=== PATIENT | female | born 1975 | race Two or more races ===

== ENCOUNTER 2019-06-15 05:45 | Inpatient (IN) | payer OTHER ==
[2019-06-14 14:45] LABS: APPEARANCE,URINE SLIGHTLY CLOUDY; BILIRUBIN, URINE NEGATIVE (NEGATIVE); COLOR,URINE PALE YELLOW; GLUCOSE, URINE (UA) NEGATIVE (NEGATIVE); KETONES,URINE 1+ (NEGATIVE); LEUKOCYTE ESTERASE ,URINE 1+ (NEGATIVE); NITRITE,URINE NEGATIVE (NEGATIVE); PH,URINE 7 (4.5-8.0); PROTEIN,URINE NEGATIVE (NEGATIVE); UROBILINOGEN,URINE NORMAL MG/DL (0.0-1.0)
[2019-06-15] VITALS (17 sets, daily range): BP systolic 89–141; BP diastolic 47–86
[~2019-06-15] VITALS: Ht 165.1 cm; Wt 64.9 kg
[2019-06-15] MEDS ORDERED: Thrombin 5000 units TOPIC ONE ×2 (06:40→06:41)
[2019-06-15] MEDS ORDERED: Bacitracin 50000 Units Vial ONE (06:41)
[2019-06-15] MEDS ORDERED: Gelfoam Absorbable 1gm powder pkt TOPIC ONE (06:41)
[2019-06-15] MEDS ORDERED: Gelfoam Size TOPIC ONE (06:41)
[2019-06-15] MEDS ORDERED: Lidocaine 1% MPF 10mg/ml 5ml ONE (06:43)
[2019-06-15] MEDS ORDERED: Rocuronium Bromide 50mg/5ml Inj IV ONE (06:43)
[2019-06-15] MEDS ORDERED: Midazolam 2mg/2ml Inj ONE (06:43)
[2019-06-15] MEDS ORDERED: Succinylcholine 20mg/ml 10ml vial ONE (06:43)
[2019-06-15] MEDS ORDERED: Heparin 5000 units/ml inj ONE (06:43)
[2019-06-15] MEDS ORDERED: fentaNYL 100 mcg/2 mL IV ONE (06:43)
[2019-06-15] MEDS ORDERED: Propofol 1,000mg/ 100ml btl IV ONE (07:00)
--- NOTE | 2019-06-15 07:12 | Pre-Procedure Note/Attestation ---
Pre-Procedure Note/Attestation Complete Prior to Procedure Planned Procedure: not applicable Procedure Narrative: Anterior Lumbar interbody fusion L5/S1 with bone morphogenic protein and anterior instrumentation Indications for Procedure Pre-Operative Diagnosis: Traumatic aggravation of pseudarthrosis L5/S1 Attestation I attest that I discussed the nature of the procedure; its benefits; risks and complications; and alternatives (and the risks and benefits of such alternatives ), prior to the procedure, with the patient (or the patient's legal authorization representative). I attest that, if there was a reasonable possibility of needing a blood transfusion, the patient (or the patient's legal authorization representative) was given the [place] [facility] [employer] [facility] standardized written summary, pursuant to the David [place] Blood Safety Act ([place] Health and Safety Code # 1645, as amended). I attest that I re-evaluated the patient just prior to the surgery and that there has been no change in the patient's H&P, except as documented below: Flip Mckeon MD Jun 15, 2019 07:12
[2019-06-15] MEDS ORDERED: NS Irrig 1000ml IRRIG ONE ×2 (07:32→09:29)
[2019-06-15] MEDS ORDERED: Sodium Chloride 10ml vial INJ ONE (07:57)
[2019-06-15] MEDS ORDERED: Glycopyrrolate 0.2mg/ml 1ml Vial ONE (07:57)
[2019-06-15] MEDS ORDERED: Ketorolac 30mg Inj ONE (07:57)
[2019-06-15] MEDS ORDERED: Morphine Sulfate 10mg/ml Inj ONE (07:57)
[2019-06-15] MEDS ORDERED: LR 1000ml 1,000 ML IVLG SCH (08:11)
--- NOTE | 2019-06-15 08:11 | Anethesia Preoperative Eval ---
Anesthesia Pre-op PMH/ROS General Date of Evaluation: Jun 15, 2019 Time of Evaluation: 06:50 Anesthesiologist: Raheem ASA Score: ASA 2 Mallampati Score Class I : Soft palate, uvula, fauces, pillars visible Class II: Soft palate, uvula, fauces visible Class III: Soft palate, base of uvula visible Class IV: Only hard plate visible Mallampati Classification: Class II Surgeon: Linda Diagnosis: Lumbar radiculopathy Surgical Procedure: Anterior fusion L5-S1 Anesthesia History: none Social History: current smoker Family History: no anesthesia problems Allergies: Coded Allergies: No Known Allergies (Unverified , 06/15/19) Medications: see eMAR Patient NPO?: Yes NPO Date: Jun 14, 2019 NPO Time: 2099 Past Medical History Cardiovascular: Denies: HTN, CAD, [place], valve dz, arrhythmia, other Pulmonary: Denies: asthma, COPD, CARINE, other Gastrointestinal/Genitourinary: Reports: GERD Neurologic/Psychiatric: Reports: depression/anxiety, other - chnic pain; Denies: dementia, CVA, TIA Endocrine: Denies: DM, hypothyroidism, steroids, other HEENT: Denies: cataract (L), cataract (R), glaucoma, [place] (L), [place] (R), other Hematology/Immune: Denies: anemia, DVT, bleeding disorder, other Musculoskeletal/Integumentary: Denies: OA, RA, DJD, DDD, edema, other PMH Narrative: as above PSxH Narrative: breasts implants, Hysterectomy, bunion, posterior lumbar fusion Anesthesia Pre-op Phys. Exam Physician Exam Last Vital Signs Date Time Temp Pulse Resp B/P (MAP) Pulse Ox O2 Delivery O2 Flow Rate FiO2 06/15/19 06:25 Room Air 06/15/19 06:13 97.6 68 20 141/80 (100) 99 Constitutional: NAD Neurologic: CN 2-12 intact Cardiovascular: RRR, no M/R/G Respiratory: CTA Gastrointestinal: S/NT/ND Airway Exam Mallampati Score: Class II MO: full Neck: flexible ROM: full Teeth: intact Dentures: no upper, no lower Anesthesia Pre-op A/P Labs see chart Studies Pre-op Studies: EKG - NSR Risk Assessment & Plan Assessment: ASA 2 Plan: GA with ETT neuromonitoring Status Change Before Surgery: No Pre-Antibiotics Drug: Ancef 1gr. Given Within 1 Hr of Incision: Yes Time Given: 07:45 Ezekiel Maciel MD Jun 15, 2019 08:11
[2019-06-15] MEDS ORDERED: DiphenhydrAMINE 50mg/ml Inj IVP PRN (08:15)
[2019-06-15] MEDS ORDERED: Hydromorphone 0.5mg/0.5ml inj IVP PRN (08:15)
[2019-06-15] MEDS ORDERED: Ketorolac 30mg Inj IV PRN (08:15)
[2019-06-15] MEDS ORDERED: Acetaminophen (Non formulary) 100 ML IV ONE (08:15)
[2019-06-15] MEDS ORDERED: Metoclopramide 10mg/2ml Inj IVP PRN ×2 (08:15→09:30)
[2019-06-15] MEDS ORDERED: Meperidine 25mg/0.5ml Inj (FOR RIGORS ONLY) IV PRN (08:15)
[2019-06-15] MEDS ORDERED: Naloxone 0.4mg/ml Inj IVP PRN (09:30)
[2019-06-15] MEDS ORDERED: Acetaminophen 650 MG SUPP RECTAL PRN (09:30)
[2019-06-15] MEDS ORDERED: HYDROcodone/Acetamin 7.5/325 tab ORAL PRN (09:30)
[2019-06-15] MEDS ORDERED: HYDROcodone/Acetamin 5/325 tab ORAL PRN (09:30)
--- NOTE | 2019-06-15 09:37 | Immediate Post-Op Evaluation ---
Immediate Post-Op Evalulation Immediate Post-Op Evalulation Procedure: Anterior L5-S1 discectomy fusion Date of Evaluation: Jun 15, 2019 Time of Evaluation: 09:36 IV Fluids: 1200 Blood Products: none Estimated Blood Loss: 50 Urinary Output: 200 Blood Pressure Systolic: 114 Blood Pressure Diastolic: 65 Pulse Rate: 62 Respiratory Rate: 20 O2 Sat by Pulse Oximetry: 99 Temperature (Fahrenheit): 97.5 Pain Score (1-10): 1 Nausea: No Vomiting: No Complications none Patient Status: reacts, patent, extubated, none Hydration Status: adequate Ezekiel Maciel MD Jun 15, 2019 09:37
--- NOTE | 2019-06-15 09:38 | Brief Operative Note ---
Immediate Post Operative Note Operative Note Pre-op Diagnosis: Traumatic aggravation of pseudarthrosis L5/S1 Procedure: ALIF l5/s1 with plate and screws Post-op Diagnosis: same Post-op Diagnosis: same as pre-op Findings: consistent w/pre-op dx studies Surgeon: faith Classified Copy Control Clerk: Nakita NAIR Additional Surgeons: swapnil Anesthesiologist: Indy Anesthesia: general Specimen: yes Complications: none Condition: stable Fluids: D5 1/2 NS 20mEQ KCl. 100cc/hr Estimated Blood Loss: minimal Implant(s) used?: Yes Flip Mckeon MD Jun 15, 2019 09:38
--- NOTE | 2019-06-15 11:00 | NUR ---
NURSE NOTES: Pt came up to unit via hospital w/family at bedside and w/no personal belongings. Pt drowsy; VSS; on 2L NC; and in no apparent distress. IV site intact/asymptomatic; F/C patent/draining; surgical dressing C/D/I; and bowel sounds hypoactive on assessment. Will offer ice chips when pt more alert. Will continue to monitor.
[2019-06-15] MEDS: HYDROcodone/Acetamin 7.5/325 tab ORAL PRN ×2 (12:53→19:13)
[2019-06-15] MEDS: D5 1/2NS w/KCl 20mEq 1,000 ML IV SCH (12:56)
[2019-06-15 13:02] LABS: BASOPHILS % (AUTO) 0.4 % (0.0-2.0); EOSINOPHILS % (AUTO) 0.1 % (0.0-3.0); HEMATOCRIT 35.3 % (37.0-47.0); HEMOGLOBIN 12.5 G/DL (12.0-16.0); LYMPHOCYTES % (AUTO) 15.9 % (20.0-45.0); MEAN CORPUSCULAR VOLUME 92 FL (80-99); MONOCYTES % (AUTO) 6.3 % (1.0-10.0); NEUTROPHILS % (AUTO) 77.3 % (45.0-75.0); PLATELET COUNT 182 K/UL (150-450); RED BLOOD COUNT 3.84 M/UL (4.20-5.40); RED CELL DISTRIBUTION WIDTH 10.4 % (11.6-14.8); WHITE BLOOD COUNT 8.9 K/UL (4.8-10.8)
--- NOTE | 2019-06-15 13:15 | NUR ---
NURSE NOTES: Removed F/C w/o incident and emptied 625 ml of clear, yellow urine from drainage bag. Instructed pt to call when she needs to void. Will continue to monitor.
--- NOTE | 2019-06-15 13:16 | Diagnostic Imaging Report ---
INDICATION: Pain, intraoperative TECHNIQUE: Intraoperative imaging Fluoroscopy time: 15.8 seconds Total dose: 0.24785 mGym2 Total number of images: 3 COMPARISON: None FINDINGS: Intraoperative images demonstrate a surgical tool at the anterior aspect of what is presumably the L5-S1 disc. Subsequent images demonstrate placement of a disc spacer at this level. IMPRESSION: Intraoperative imaging, as described
[2019-06-15] MEDS: ceFAZolin sod 1 GM in D5W 55 ML IV SCH (15:38)
--- NOTE | 2019-06-15 16:00 | NUR ---
NURSE NOTES: Bolused pt w/1L NS d/t hypotension (BP: 91/60 P: 59); pt tolerated well. Will continue to monitor.
[2019-06-15] MEDS: Docusate 100mg cap ORAL SCH (18:08)
--- NOTE | 2019-06-15 19:00 | NUR ---
NURSE NOTES: Pt ambulated to bathroom w/FWW and w/help from APPLICATION PROCESSOR and successfully voided on her own; pt helped back to bed by APPLICATION PROCESSOR w/o incident. Will continue to monitor.
--- NOTE | 2019-06-15 19:38 | NUR ---
HAND-OFF: Report given to CHRISTINA Vega.
--- NOTE | 2019-06-15 21:06 | General Progress Note ---
Assessment/Plan Assessment/Plan: Traumatic aggravation of pseudarthrosis L5/S1 ALIF l5/s1 with plate and screws PLAN 1. incentive spirometry 2. SCD 3. PT evaluation and therapy 4. Hydration 5. Pain management 6. discharge once stable with outpatient follow up Subjective Allergies: Coded Allergies: No Known Allergies (Unverified , 06/15/19) Subjective asked to follow up postop Objective Last 24 Hour Vital Signs Date Time Temp Pulse Resp B/P (MAP) Pulse Ox O2 Delivery O2 Flow Rate FiO2 06/15/19 16:00 98.2 59 16 89/47 (61) 100 06/15/19 14:00 97.7 53 16 91/60 (70) 100 06/15/19 13:00 98.2 54 16 100/60 (73) 100 06/15/19 12:00 97.2 56 16 109/66 (80) 100 06/15/19 11:30 98.0 54 16 103/63 (76) 100 06/15/19 11:00 98.0 56 16 108/65 (79) 100 06/15/19 10:45 97.6 06/15/19 10:45 97.6 06/15/19 10:30 97.6 60 17 110/86 100 Nasal Cannula 3 06/15/19 10:20 51 14 101/50 100 Nasal Cannula 3 06/15/19 10:15 53 15 101/55 100 Nasal Cannula 3 06/15/19 10:05 62 22 102/53 100 Nasal Cannula 3 06/15/19 10:00 64 23 108/56 100 Simple Mask 6 06/15/19 09:50 60 20 126/81 100 Simple Mask 6 06/15/19 09:40 52 22 119/67 100 Simple Mask 6 06/15/19 09:37 62 20 99 06/15/19 09:35 60 18 114/65 100 Simple Mask 6 06/15/19 09:29 97.4 65 14 120/71 100 Simple Mask 6 06/15/19 06:25 Room Air 06/15/19 06:13 97.6 68 20 141/80 (100) 99 Intake and Output 06/14/19 06/15/19 19:00 07:00 # Voids 1 Laboratory Tests 06/15/19 12:15: White Blood Count 8.9, Red Blood Count 3.84L, Hemoglobin 12.5, Hematocrit 35.3L , Mean Corpuscular Volume 92, Mean Corpuscular Hemoglobin 32.6H, Mean Corpuscular Hemoglobin Concent 35.4, Red Cell Distribution Width 10.4L, Platelet Count 182, Mean Platelet Volume 6.4L, Neutrophils (%) (Auto) 77.3H, Lymphocytes (%) (Auto) 15.9L, Monocytes (%) (Auto) 6.3, Eosinophils (%) (Auto) 0.1, Basophils (%) (Auto) 0.4 Height (Feet): 5 Height (Inches): 5.00 Weight (Pounds): 130 Objective WDWN NAD clear breath sounds bilaterally without rhonchi or wheeze [id number] without MRG NABS nontender no HSM no CCE nonfocal Cristian Wright MD Jun 15, 2019 21:06
[2019-06-15] MEDS: HYDROmorphone 1mg/ml Carpuject IVP PRN (21:54)
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
[2019-06-16] VITALS: BP 124/66
[2019-06-16] MEDS: D5 1/2NS w/KCl 20mEq 1,000 ML IV SCH ×3 (00:06→19:00)
[2019-06-16] MEDS: ceFAZolin sod 1 GM in D5W 55 ML IV SCH ×2 (00:06→06:29)
--- NOTE | 2019-06-16 02:47 | NUR ---
NURSES NOTE: Pt in bed, A/OX4, able to let needs be known. Pt showing no s/s of distress. Breathing pattern is even and unlabored on RA. IVF running according to eMAR. All due meds will be given. Pt encouraged to ambulate. Bed at lowest level. Call light within reach. Pt will continue to be monitored.
[2019-06-16] MEDS: HYDROmorphone 1mg/ml Carpuject IVP PRN ×4 (03:32→20:39)
[2019-06-16 04:00] VITALS: BP 118/62
[2019-06-16 06:00] LABS: ANION GAP 8 mmol/L (5-15); BLOOD UREA NITROGEN 6 mg/dL (7-18); CALCIUM 8.5 MG/DL (8.5-10.1); CARBON DIOXIDE 25 MMOL/L (21-32); CHLORIDE 105 MMOL/L (98-107); CREATININE 0.6 MG/DL (0.55-1.30); POTASSIUM 4.3 MMOL/L (3.5-5.1); SODIUM 138 MMOL/L (136-145)
[2019-06-16] MEDS ORDERED: LR 1000ml ONE (07:00)
--- NOTE | 2019-06-16 07:32 | 48 Hour Post Anesthesia Eval ---
Post Anesthesia Evaluation Procedure: Anterior L5-S1 discectomy fusion Date of Evaluation: Jun 16, 2019 Time of Evaluation: 07:31 Blood Pressure Systolic: 118 0: 62 Pulse Rate: 60 Respiratory Rate: 16 Temperature (Fahrenheit): 98.4 O2 Sat by Pulse Oximetry: 97 Airway: patent Nausea: No Vomiting: No Pain Intensity: 3 Hydration Status: adequate Cardiopulmonary Status: Stable Mental Status/LOC: patient returned to baseline Follow-up Care/Observations: 0 Post-Anesthesia Complications: 0 Follow-up care needed: N/A Mau Benítez MD Jun 16, 2019 07:32
[2019-06-16 08:00] VITALS: BP 116/73
--- NOTE | 2019-06-16 08:03 | NUR ---
HAND OFF: Report given to CHRISTINA Witt. Patient in stable condition.
[2019-06-16] MEDS: Docusate 100mg cap ORAL SCH ×2 (08:10→17:22)
--- NOTE | 2019-06-16 08:24 | 48 Hour Post Anesthesia Eval ---
Post Anesthesia Evaluation Procedure: Anterior L5-S1 discectomy fusion Date of Evaluation: Jun 16, 2019 Time of Evaluation: 08:23 Blood Pressure Systolic: 116 0: 72 Pulse Rate: 68 Respiratory Rate: 20 Temperature (Fahrenheit): 97.6 O2 Sat by Pulse Oximetry: 98 Airway: patent Nausea: No Vomiting: No Pain Intensity: 3 Hydration Status: adequate Cardiopulmonary Status: stable Mental Status/LOC: patient returned to baseline Follow-up Care/Observations: n/a Post-Anesthesia Complications: none Follow-up care needed: N/A Ezekiel Maciel MD Jun 16, 2019 08:24
--- NOTE | 2019-06-16 08:30 | NUR ---
NURSE NOTES: Received report from Tami VASQUEZ. Patient is awake and oriented x4, no acute distress noted but patient is reporting 10/10 pain in surgical site, patient is crying and irritable from pain during rounds, requesting for IV pain medication. Patient medicated per order, IVF running per order through left hand IV. Surgical site dressing clean, dry, intact. Fall precautions maintained. Side rails upx2, bed low and locked, call light within reach, will reassess per order.
--- NOTE | 2019-06-16 09:15 | NUR ---
PT EVALUATION NOTE Patient seen for initial evaluation. Patient educated in back precautions and log roll technique for in/OOB. Patient required min assist for bed mobility and SBA for transfers with FWW. Patient able to ambulate 25 ft with CGA and FWW. Activity tolerance limited by c/o increased pain with ambulation. Patient will benefit from skilled inpatient PT intervention to address mobility and compliance with back precautions for increased level of independence with functional mobility. Recommend discharge home once medically cleared by MD. Recommend FWW for ambulation and raised toilet seat for toilet transfers. Addendum: 06/16/19 at 1243 by DAWIT MORGAN PT Amended: Links added.
--- NOTE | 2019-06-16 10:21 | General Progress Note ---
Assessment/Plan Assessment/Plan: Traumatic aggravation of pseudarthrosis L5/S1 ALIF l5/s1 with plate and screws PLAN 1. incentive spirometry 2. SCD 3. PT evaluation and therapy 4. Hydration 5. Pain management 6. discharge planning pending clearance and PT Subjective Allergies: Coded Allergies: No Known Allergies (Unverified , 06/15/19) Subjective overall care reviewed Objective Last 24 Hour Vital Signs Date Time Temp Pulse Resp B/P (MAP) Pulse Ox O2 Delivery O2 Flow Rate FiO2 06/16/19 08:24 68 20 98 06/16/19 07:32 60 16 97 06/16/19 04:00 98.4 60 16 118/62 (80) 97 06/16/19 00:00 98.6 68 14 124/66 (85) 96 06/15/19 21:00 Room Air 06/15/19 20:00 98.4 57 16 108/66 (80) 96 06/15/19 16:00 98.2 59 16 89/47 (61) 100 06/15/19 14:00 97.7 53 16 91/60 (70) 100 06/15/19 13:00 98.2 54 16 100/60 (73) 100 06/15/19 12:00 97.2 56 16 109/66 (80) 100 06/15/19 11:30 98.0 54 16 103/63 (76) 100 06/15/19 11:00 98.0 56 16 108/65 (79) 100 06/15/19 10:45 97.6 06/15/19 10:45 97.6 06/15/19 10:30 97.6 60 17 110/86 100 Nasal Cannula 3 Intake and Output 06/15/19 06/16/19 19:00 07:00 Intake Total 1700 ml 360 ml Output Total 875 ml Balance 825 ml 360 ml Intake Oral 360 ml IV Total 1700 ml Output Urine Total 825 ml Estimated Blood Loss 50 ml # Voids 1 Laboratory Tests 06/15/19 12:15: White Blood Count 8.9, Red Blood Count 3.84L, Hemoglobin 12.5, Hematocrit 35.3L , Mean Corpuscular Volume 92, Mean Corpuscular Hemoglobin 32.6H, Mean Corpuscular Hemoglobin Concent 35.4, Red Cell Distribution Width 10.4L, Platelet Count 182, Mean Platelet Volume 6.4L, Neutrophils (%) (Auto) 77.3H, Lymphocytes (%) (Auto) 15.9L, Monocytes (%) (Auto) 6.3, Eosinophils (%) (Auto) 0.1, Basophils (%) (Auto) 0.4 06/16/19 04:45: Sodium Level 138, Potassium Level 4.3, Chloride Level 105, Carbon Dioxide Level 25, Anion Gap 8, Blood Urea Nitrogen 6L, Creatinine 0.6, Estimat Glomerular Filtration Rate > 60, Glucose Level 100, Calcium Level 8.5 Height (Feet): 5 Height (Inches): 5.00 Weight (Pounds): 143 Objective WDWN NAD clear breath sounds bilaterally without rhonchi or wheeze [id number] without MRG NABS nontender no HSM no CCE nonfocal Cristian Wright MD Jun 16, 2019 10:21
[2019-06-16] MEDS: HYDROcodone/Acetamin 7.5/325 tab ORAL PRN ×4 (10:51→22:29)
[2019-06-16 12:00] VITALS: BP 127/75
[2019-06-16] MEDS ORDERED: Tubing IV Secondary IV ONE (15:06)
[2019-06-16 16:00] VITALS: BP 106/69
--- NOTE | 2019-06-16 18:20 | NUR ---
NURSE NOTES: Patient's left hand IV infiltrated. Patient's left hand is swollen and cool to touch. Removed IV intact, applied ice to left hand and elevated left hand/arm on pillow. Patient is refusing new IV insertion at this time.
--- NOTE | 2019-06-16 19:21 | NUR ---
NURSE NOTES: Received report from CHRISTINA Witt. Pt is awake, lying semi-zhu's; comfortably resting. No signs of acute distress noted. Pt denies any pain at this time. AOx4; able to make needs known. No IV site noted. Will attempt to establish IV at a later time. Dressing intact. No erythema or bleeding noted. Infiltration noted on the left hand; ice pack in place and elevated using a pillow. Bed at lowest position. Brakes on. Siderails up x2. Call light within reach. Will continue to monitor.
--- NOTE | 2019-06-16 19:24 | NUR ---
HAND-OFF: Report given to Heidy VASQUEZ.
[2019-06-16 20:00] VITALS: BP 103/61
[2019-06-17] VITALS: BP 113/68
[2019-06-17] MEDS: HYDROmorphone 1mg/ml Carpuject IVP PRN ×5 (00:17→21:26)
[2019-06-17] MEDS: D5 1/2NS w/KCl 20mEq 1,000 ML IV SCH (01:17)
[2019-06-17] MEDS: HYDROcodone/Acetamin 7.5/325 tab ORAL PRN ×3 (02:50→20:06)
[2019-06-17 04:00] VITALS: BP 96/67
--- NOTE | 2019-06-17 04:15 | NUR ---
HAND-OFF: Report given to CHRISTINA Weber. Pt is sleeping and in stable condition. Plan of care endorsed.
--- NOTE | 2019-06-17 07:12 | NUR ---
NURSES NOTE: Received pt in stable condition. No outward s/s of distress noted. IVF infusing according to eMAR. All due pain medications will be given. Bed at lowest level. Last BP lower than recent baseline, asymptomatic. Endorsed to AM nurse. Call light within reach. Partner at bedside.
--- NOTE | 2019-06-17 07:15 | NUR ---
HAND OFF: Report given to CHRISTINA Viramontes. Pt in stable condition.
--- NOTE | 2019-06-17 07:33 | NUR ---
NURSE NOTES: Report received from Tami VASQUEZ, rounds made. Patient resting in supine position in bed. AOx4 calm, no distress on RA. Denies NV, requesting food, will advance diet. IV D5 1/2 NS +20 KCL at 100 ml/hr infusing to MERCED, site asymptomatic, LH swollen due to past IV, no redness, skin remains intact. Abdominal dressing intact, small area shadow drainage (circled) will monitor. Bilateral TEDs/SCDs on. Neuros intact, moves all extremities, skin warm, pulses palpable, wiggles. Pain 8/10, will medicate as ordered. Call light in reach, bed in lowest position, will continue to monitor.
[2019-06-17 08:00] VITALS: BP 116/63
--- NOTE | 2019-06-17 08:36 | General Progress Note ---
Assessment/Plan Assessment/Plan: Traumatic aggravation of pseudarthrosis L5/S1 ALIF l5/s1 with plate and screws PLAN 1. incentive spirometry 2. SCD 3. PT evaluation and therapy 4. Hydration 5. Pain management 6. discharge planning pending clearance and PT Subjective Allergies: Coded Allergies: No Known Allergies (Unverified , 06/15/19) Subjective overall care reviewed Objective Last 24 Hour Vital Signs Date Time Temp Pulse Resp B/P (MAP) Pulse Ox O2 Delivery O2 Flow Rate FiO2 06/17/19 04:00 99.2 75 19 96/67 (77) 97 06/17/19 00:00 99.7 79 20 113/68 (83) 96 06/16/19 21:00 Room Air 06/16/19 20:00 99.2 73 21 103/61 (75) 96 06/16/19 16:00 98.4 75 16 106/69 (81) 96 06/16/19 12:00 97.9 82 16 127/75 (92) 100 06/16/19 09:00 Room Air Intake and Output 06/16/19 06/17/19 19:00 07:00 Intake Total 1500 ml 980 ml Output Total 900 ml Balance 1500 ml 80 ml Intake Oral 400 ml 480 ml IV Total 1100 ml 500 ml Output Urine Total 900 ml # Voids 3 3 # Bowel Movements 2 Height (Feet): 5 Height (Inches): 5.00 Weight (Pounds): 143 Objective WDWN NAD clear breath sounds bilaterally without rhonchi or wheeze [id number] without MRG NABS nontender no HSM no CCE nonfocal Cristian Wright MD Jun 17, 2019 08:36
[2019-06-17] MEDS: Docusate 100mg cap ORAL SCH ×3 (09:00→17:58)
--- NOTE | 2019-06-17 09:45 | NUR ---
NURSE NOTES: Patient with mild nausea, medicated with Zofran, no emesis, requesting for diet to switch back to clear liquids. Encouraged PO fluid intake. IV heplocked. Encouraged CDB with pillow to abdominal surgical site as splint, verbalized understanding.
--- NOTE | 2019-06-17 09:50 | NUR ---
PT NOTE Attempted to see patient for PT treatment. Patient declining to participate with PT , c/o headache. Ana M VASQUEZ notified, will follow up in p.m.
[2019-06-17 12:01] VITALS: BP 110/72
--- NOTE | 2019-06-17 15:19 | NUR ---
CASE MANAGEMENT: INITIAL REVIEW 43 YR OLD FEMALE HERE FOR ELECTIVE SURGERY CC: BACK PAIN SI: TRAMATIC AGGREAVATION OF PSEUDARTHROSIS L5/S1 97.6 68 20 141/80 99% ON RA BUN 6 IS: IN SURGERY NOW IV ANCEF Q8HR X3 BAGS IV NS BOLUS X1 X-RAY LUMBAR SPINE \: [facility] SURG UNIT CASE MANAGEMENT: REVIEW 06/16/19 SI: POD#1 ALIF L5-S1 WITH PLATES AND SCREWS TRAUMATIC AGGRAVATION OF PSEUDARTHROSIS L5/S1 98.1 70 16 116/73 98% ON RA IS:IV NS @100ML/HR IV DILAUDID Q2HR/PRN NORCO PO Q3HR/PRN \: 3[facility] SURG UNIT CASE MANAGEMENT: REVIEW 06/17/19 SI: POD#1 ALIF L5-S1 WITH PLATES AND SCREWS TRAUMATIC AGGRAVATION OF PSEUDARTHROSIS L5/S1 98.4 73 18 116/63 98% ON RA IS:IV NS @100ML/HR IV DILAUDID Q2HR/PRN NORCO PO Q3HR/PRN \: 3E MED SURG UNIT PLAN: CONTROL PAIN POSS DC IN AM
[2019-06-17 16:00] VITALS: BP 114/73
--- NOTE | 2019-06-17 19:12 | NUR ---
NURSE NOTES: Received report from CHRISTINA Viramontes. Pt is awake, lying semi-zhu's; comfortably resting. No signs of acute distress noted. Pt denies any pain at this time. AOx4; able to make needs known. Checked IV site; patent and flushed. Dressing intact. No erythema or bleeding noted. Infiltration on left hand resolved. Bed at lowest position. Brakes on. Siderails up x2. Call light within reach. Will continue to monitor.
--- NOTE | 2019-06-17 19:12 | NUR ---
HAND-OFF: Report given to Heidy VASQUEZ, rounds made.
[2019-06-17 20:00] VITALS: BP 117/73
[2019-06-18] VITALS: BP 120/77
[2019-06-18] MEDS: HYDROcodone/Acetamin 7.5/325 tab ORAL PRN (01:02)
[2019-06-18] MEDS: HYDROmorphone 1mg/ml Carpuject IVP PRN ×2 (02:53→08:23)
[2019-06-18 03:59] VITALS: BP 99/63
--- NOTE | 2019-06-18 07:43 | NUR ---
NURSE NOTES: Report received from Heidy RN, rounds made. Patient resting in supine position in bed. No distress on RA. AOx4, calm. MERCED heplock intact. Bilateral SCDs on. Neuro checks done, unchanged. Abdominal dressing remains the same, with small shadow dressing/circled from 06/16. Abdominal pain 11/14, will medicate as ordered. No NV, requesting regular diet, will order. Call light in reach, bed in lowest position, will continue to monitor.
--- NOTE | 2019-06-18 07:44 | NUR ---
HAND-OFF: Report given to CHRISTINA Viramontes. Pt is sleeping and in stable condition. Plan of care endorsed.
[2019-06-18 08:00] VITALS: BP 103/62
[2019-06-18] MEDS: Docusate 100mg cap ORAL SCH ×2 (08:23→18:44)
--- NOTE | 2019-06-18 08:24 | General Progress Note ---
Assessment/Plan Assessment/Plan: Traumatic aggravation of pseudarthrosis L5/S1 ALIF l5/s1 with plate and screws post op pain urine culture with lactobacillus PLAN 1. incentive spirometry 2. SCD 3. PT evaluation and therapy 4. Hydration 5. Pain management 6. discharge planning pending clearance and PT Subjective Allergies: Coded Allergies: No Known Allergies (Unverified , 06/15/19) Subjective overall care reviewed Objective Last 24 Hour Vital Signs Date Time Temp Pulse Resp B/P (MAP) Pulse Ox O2 Delivery O2 Flow Rate FiO2 06/18/19 03:59 98.3 74 18 99/63 (75) 97 06/18/19 00:00 98.2 71 16 120/77 (91) 96 06/17/19 21:00 Room Air 06/17/19 20:00 98.2 73 16 117/73 (88) 97 06/17/19 16:00 98.4 78 16 114/73 (87) 98 06/17/19 12:01 98.0 75 18 110/72 (85) 97 06/17/19 09:00 Room Air Intake and Output 06/17/19 06/18/19 19:00 07:00 Intake Total 850 ml 800 ml Balance 850 ml 800 ml Intake Oral 750 ml 800 ml IV Total 100 ml # Voids 3 Height (Feet): 5 Height (Inches): 5.00 Weight (Pounds): 143 Objective WDWN NAD clear breath sounds bilaterally without rhonchi or wheeze [id number] without MRG NABS nontender no HSM no CCE nonfocal Cristian Wright MD Jun 18, 2019 08:24
--- NOTE | 2019-06-18 09:00 | NUR ---
NURSE NOTES: Received call from Dr. Santiago, update on patient current status, vitals, pain medication taken in the past 12 hours, labs, orders received for CBC, DC Dilaudid/Mason and start Percocet 10 mg 2 tablets Q4h PRN. Notified Dr. Santiago that patient is complaining of left underarm/arm pit area pain. Dr. Santiago's call transferred to patient to speak to her. RN updated patient of new orders, verbalized understanding.
[2019-06-18 10:13] LABS: BASOPHILS % (AUTO) 1.1 % (0.0-2.0); EOSINOPHILS % (AUTO) 1.2 % (0.0-3.0); HEMATOCRIT 39.3 % (37.0-47.0); MEAN CORPUSCULAR VOLUME 92 FL (80-99); MONOCYTES % (AUTO) 8.4 % (1.0-10.0); NEUTROPHILS % (AUTO) 70.4 % (45.0-75.0); PLATELET COUNT 199 K/UL (150-450); RED BLOOD COUNT 4.25 M/UL (4.20-5.40); RED CELL DISTRIBUTION WIDTH 10.5 % (11.6-14.8); WHITE BLOOD COUNT 5.5 K/UL (4.8-10.8)
[2019-06-18 12:00] VITALS: BP 110/73
[2019-06-18 16:00] VITALS: BP 118/74
--- NOTE | 2019-06-18 16:22 | NUR ---
CASE MANAGEMENT: REVIEW 06/18/19 SI: POD#3 ALIF L5-S1 WITH PLATES AND SCREWS TRAUMATIC AGGRAVATION OF PSEUDARTHROSIS L5/S1 98.3 78 20 110/73 98% ON RA BUN 6 IS:PO AMOXICILLIN TID PERCOCET PO Q4HR/PRN COLACE PO TID ZOFRAN Q6HR/PRN \: 3E MED SURG UNIT PLAN: ADVANCE DIET POSSIBLE DC TODAY
--- NOTE | 2019-06-18 19:50 | NUR ---
HAND-OFF: Report given to Shanice VASQUEZ, rounds made.Patient stable.
--- NOTE | 2019-06-18 19:52 | NUR ---
NURSE NOTES: Received report from Ana M VASQUEZ. Rounding is done. Patient is a/o x4, in bed, and able to known her need. Breathing is even and unlabored. Family is at bedside. Patient c/o pain 7/10 and will give medication as ordered. IV site is intact. Dressing is i/d/c. Bed is on alarm, locked, and lowest position. Call light within reach. Will continue to monitor.
[2019-06-18 20:00] VITALS: BP 128/68
[2019-06-19] VITALS: BP 125/79
[2019-06-19 04:00] VITALS: BP 119/76
[2019-06-19] MEDS: traMADol 50mg tab ORAL PRN ×2 (07:19→22:37)
--- NOTE | 2019-06-19 07:27 | NUR ---
HAND-OFF: Report given to Ana M VASQUEZ. Patient in stable condition.
--- NOTE | 2019-06-19 07:28 | NUR ---
NURSE NOTES: Report received from Shanice VASQUEZ, rounds made. Patient resting in supine position in bed, no distress on RA. AOx4 calm, no SOB/NV. Surgical site abdominal pain 06/14, dressing remains unchanged with small shadow area. Bilateral SCDs/GRECIA hose off. Encouraged IS/ambulation, verbalized understanding. MERCED kwon intact. Spouse at bedside. Call light in reach, bed in lowest position, will continue to monitor.
[2019-06-19 08:00] VITALS: BP 125/80
[2019-06-19] MEDS: Milk of Magnesia 30ml Ud ORAL PRN (08:39)
[2019-06-19] MEDS: Docusate 100mg cap ORAL SCH ×2 (08:40→18:34)
--- NOTE | 2019-06-19 08:40 | NUR ---
NURSE NOTES: Patient complains of severe abdominal and lower back pain, 01/14. Reviewed medication profile with patient. Keren MALLOY notified of pain severity, discussed plan of care with patient. Abdomen soft, tender, non-distended, BS hypoactive, appetite good, no NV, no flatulence, last BM 06/14 day of admission per patient, tolerating PO fluids well. Administered Colace and MOM, see eMAR. Instructed patient to ambulate in halls with RW, reinforced IS, verbalized understanding. Will continue to monitor.
--- NOTE | 2019-06-19 08:52 | General Progress Note ---
Assessment/Plan Assessment/Plan: Traumatic aggravation of pseudarthrosis L5/S1 ALIF l5/s1 with plate and screws post op pain urine culture with lactobacillus PLAN 1. incentive spirometry 2. SCD 3. PT evaluation and therapy 4. Hydration 5. Pain management/ added amoxil for UTI 6. discharge planning once pain better controlled Subjective Allergies: Coded Allergies: No Known Allergies (Unverified , 06/15/19) Subjective overall care reviewed Objective Last 24 Hour Vital Signs Date Time Temp Pulse Resp B/P (MAP) Pulse Ox O2 Delivery O2 Flow Rate FiO2 06/19/19 08:00 97.6 71 18 125/80 (95) 98 06/19/19 04:00 98.7 81 17 119/76 (90) 97 06/19/19 00:00 97.9 76 17 125/79 (94) 97 06/18/19 21:00 Room Air 06/18/19 20:00 98.3 79 17 128/68 (88) 95 06/18/19 16:00 98.0 75 16 118/74 (89) 97 06/18/19 12:00 98.3 78 20 110/73 (85) 98 06/18/19 09:00 Room Air Intake and Output 06/18/19 06/19/19 19:00 07:00 Intake Total 1090 ml 120 ml Balance 1090 ml 120 ml Intake Oral 1090 ml 120 ml # Voids 3 Laboratory Tests 06/18/19 10:00: White Blood Count 5.5, Red Blood Count 4.25, Hemoglobin 14.0, Hematocrit 39.3, Mean Corpuscular Volume 92, Mean Corpuscular Hemoglobin 32.9H, Mean Corpuscular Hemoglobin Concent 35.6, Red Cell Distribution Width 10.5L, Platelet Count 199, Mean Platelet Volume 6.1L, Neutrophils (%) (Auto) 70.4, Lymphocytes (%) (Auto) 19.0L, Monocytes (%) (Auto) 8.4, Eosinophils (%) (Auto) 1.2, Basophils (%) (Auto ) 1.1 Height (Feet): 5 Height (Inches): 5.00 Weight (Pounds): 143 Objective WDWN NAD clear breath sounds bilaterally without rhonchi or wheeze [id number] without MRG NABS nontender no HSM no CCE nonfocal Cristian Wright MD Jun 19, 2019 08:52
--- NOTE | 2019-06-19 09:30 | NUR ---
PT note Attempted to see patient for treatment but patient c/o not sleeping well last night and have severe pain. Will check again later.
[2019-06-19 12:00] VITALS: BP 114/77
[2019-06-19 16:00] VITALS: BP 151/87
--- NOTE | 2019-06-19 19:13 | NUR ---
HAND-OFF: Report given to Shanice VASQUEZ, rounds made. Patient stable.
--- NOTE | 2019-06-19 19:21 | NUR ---
NURSE NOTES: Received report from Ana M VASQUEZ. Rounding is done. Patient is a/o x4, in bed, and able to known her need. Breathing is even and unlabored. Family is at bedside. Patient c/o pain 2/10 and will continue to monitor. IV site is intact. Dressing is i/d/c. Bed is on alarm, locked, and lowest position. Call light within reach. Will continue to monitor.
[2019-06-19 20:00] VITALS: BP 131/83
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
--- NOTE | 2019-06-19 21:45 | Operative Note - Dictated ---
DATE OF OPERATION: 06/15/2019 PREOPERATIVE DIAGNOSIS: Radiculopathy, status post trauma to the spine. POSTOPERATIVE DIAGNOSIS: Radiculopathy, status post trauma to the spine. PROCEDURE: 1. Anterior retroperitoneal exposure, interbody fusion lumbosacral spine, L5-S1. 2. Mobilization of the right proximal common iliac artery and vein. 3. Mobilization of the left common iliac artery and vein. 4. Ligation of the middle sacral artery. SURGEON: Uzair Quiroz M.D. CO-SURGEON: Flip Mckeon M.D. for procedure #2, #3, #4. ANESTHESIA: General. EBL: 100 mL. OPERATIVE NOTE: Risks, benefits, complications, alternative therapies, high-risk nature of the operation were fully explained to the patient and consent obtained. Risks and benefits have been explained to the patient included, but not limited to bleeding, infection, damage to bowel, damage to ureter, wound infection, wound dehiscence, DVT, PE, loss of limb, loss of life, high-risk nature of the operation fully explained and stressed to the patient. Consent obtained. OPERATIVE TECHNIQUE: The patient was placed in supine position, prepped and draped in usual sterile fashion. I made a incision in the left lower quadrant in a horizontal fashion. The incision was taken down to the subcutaneous tissue, which was then opened using electrocautery. The left anterior rectus sheath was opened in the direction of the wound. Left rectus muscle was mobilized superiorly and inferiorly about 5 cm. I entered the retroperitoneal space. Bookwalter retractor was placed retracting the bowel contents to the right and left rectus muscle to the left. I dissected the left common iliac artery and vein. Middle sacral vessels were ligated using titanium clips. The right common iliac artery and vein were mobilized to the right. Left common iliac artery and vein were mobilized to the left. Exposure for L5-S1 was obtained between the right and left common iliac artery and vein. We proceeded with diskectomy and placement of the new cage. Please refer to Dr. Mckeon's dictation for details of that operation. After all the x-rays were satisfactory read by Dr. Mckeon the needle counts and sponge counts were correct. The wound was irrigated using antibiotic solution. The anterior rectus sheath was closed using #1 Vicryl suture in a running fashion with interrupted sutures and wound was irrigated again and closed in two layers of 2-0 Vicryl suture for subcutaneous and Steri-Strips for the skin. The patient tolerated the procedure well. Uzair Quiroz MD DR: Breanna JOB#: [id number] CC:
[2019-06-20] VITALS: BP 117/71
[2019-06-20 04:00] VITALS: BP 129/84
--- NOTE | 2019-06-20 07:12 | NUR ---
NURSE NOTES: Report received from Shanice VASQUEZ, rounds made. Patient sleeping in right lateral position, in bed. Respirations even/unlabored. No distress on RA. MERCED heplock in place. Bilateral SCDs off. Call light in reach, bed in lowest position, will continue to monitor. Spouse at bedside.
--- NOTE | 2019-06-20 07:18 | NUR ---
HAND-OFF: Report given to Ana M VASQUEZ. Patient in stable condition.
[2019-06-20 08:00] VITALS: BP 112/80
[2019-06-20] MEDS: Docusate 100mg cap ORAL SCH (09:37)
[2019-06-20] MEDS: Milk of Magnesia 30ml Ud ORAL PRN (09:44)
--- NOTE | 2019-06-20 10:25 | NUR ---
NURSE NOTES:PT. WALKING WITH PT.USING FRONT WHEELED WALKER,CLAIMS SHE FEELS HEAVINESS ON LEFT LEG MAINLY ON LATERAL SIDE,ASSESSED FOR SENSATION USING PINPRICK,PT. CLAIMS SHE FEELS MORE ON INNER SIDE DOWN TO LEFT BIG TOE,PT. WAS BACK TO BED BY PT.WILL CALL AWARE.PRIMARY RN.INFORMED. Addendum: 06/20/19 at 1100 by RAVI SADLER RN NOTIFIED,STAT VENOUS DUPLEX DONE.WILL MONITOR
--- NOTE | 2019-06-20 11:14 | General Progress Note ---
Assessment/Plan Assessment/Plan: Traumatic aggravation of pseudarthrosis L5/S1 ALIF l5/s1 with plate and screws post op pain urine culture with lactobacillus PLAN 1. stat Duplex legs for DVt 2. SCD 3. PT evaluation and therapy 4. Hydration 5. Pain management/ added amoxil for UTI- may dc after 3 days 6. discharge planning once pain better controlled Subjective Allergies: Coded Allergies: No Known Allergies (Unverified , 06/15/19) Subjective overall care reviewed has leg pain Objective Last 24 Hour Vital Signs Date Time Temp Pulse Resp B/P (MAP) Pulse Ox O2 Delivery O2 Flow Rate FiO2 06/20/19 04:00 97.9 78 19 129/84 (99) 97 06/20/19 00:00 98.2 72 18 117/71 (86) 97 06/19/19 21:00 Room Air 06/19/19 20:00 99.2 66 20 131/83 (99) 100 06/19/19 16:00 98.2 75 20 151/87 (108) 99 06/19/19 12:00 98.1 69 18 114/77 (89) 99 Intake and Output 06/19/19 06/20/19 19:00 07:00 Intake Total 1100 ml 480 ml Balance 1100 ml 480 ml Intake Oral 1100 ml 480 ml # Voids 4 3 Height (Feet): 5 Height (Inches): 5.00 Weight (Pounds): 143 Objective WDWN NAD clear breath sounds bilaterally without rhonchi or wheeze [id number] without MRG NABS nontender no HSM no CCE nonfocal Cristian Wright MD Jun 20, 2019 11:14
--- NOTE | 2019-06-20 11:30 | NUR ---
NURSE NOTES: Patient with complains of LLE heaviness, left thigh numbness, no swelling noted. Dr. Wright notified, orders for STAT VD, results negative. Dr. Mckeon and Adriana notified, okay to discharge. Patient notified of results and orders as well.
--- NOTE | 2019-06-20 11:51 | Diagnostic Imaging Report ---
EXAM: US Duplex Bilateral Lower Extremities Veins CLINICAL HISTORY: PAIN TECHNIQUE: Real-time duplex ultrasound scan of the bilateral lower extremity veins integrating B-mode two-dimensional vascular structure, Doppler spectral analysis, color flow Doppler imaging and compression. COMPARISON: None FINDINGS: Right deep veins: Unremarkable. No DVT in the right common femoral, femoral, proximal deep femoral or popliteal veins. The veins demonstrate normal color flow, are normally compressible, with normal phasic flow and/or augmentation response. Right superficial veins: Unremarkable. No thrombus in the visualized right great saphenous vein. Left deep veins: Unremarkable. No DVT in the left common femoral, femoral, proximal deep femoral or popliteal veins. The veins demonstrate normal color flow, are normally compressible, with normal phasic flow and/or augmentation response. Left superficial veins: Unremarkable. No thrombus in the visualized left great saphenous vein. Soft tissues: No acute findings. No popliteal cyst. Nonspecific mildly prominent lymph node in the proximal right thigh. IMPRESSION: No deep venous thrombosis identified in either lower extremity.
[2019-06-20 12:00] VITALS: BP 115/76
--- NOTE | 2019-06-20 14:30 | NUR ---
NURSE NOTES: Patient reports that her daughter is positive for Coronavirus (patient asymptomatic), requesting COVID-[address] Wright notified, need instructions from administration or ER. Nursing corncob pipe manufacturing supervisor notified, however, patient states she changed her mind and doesn't want to get tested because her daughter is fine now. Keren MALLOY and Nursing corncob pipe manufacturing supervisor notified.
[2019-06-20] MEDS ORDERED: NORCO 5-325 TA1 EAC1 ORAL (15:30)
[2019-06-20 16:00] VITALS: BP 114/77
--- NOTE | 2019-06-20 16:00 | NUR ---
NURSE NOTES: Discharge instructions and prescription ([place] 5/325 mg) reviewed with patient and family member, verbalized understanding. All belongings, prescription x1, DME (RW (assembled) and raised toilet seat) given to patient. IV heplock discontinued at 1450, no active bleeding. Abdominal dressing remains intact, small area with shadow drainage, circled, no changes. Patient sent down to [facility] via with RN, in stable condition. Discharged home at 1600.
--- NOTE | 2019-06-21 15:27 | Discharge Summary ---
Discharge Summary Hospital Course Date of Admission Jun 15, 2019 at 05:45 Date of Discharge Jun 20, 2019 at 16:09 Admitting Diagnosis lumbar radiculopathy Reason for Hospitalization: elective surgery HPI Tg Masters is a 43 year old female who was admitted on Jun 15, 2019 at 05:45 for Lumbar Radiculopathy,Lumbago Consultations Dr Wright -IM Procedures s/p 06/15/[address] Mckeon 1. L5-S1 anterior lumbar interbody fusion with cage implantation. 2. Autograft fusion with demineralized bone matrix and bone morphogenetic protein. 3. Anterior spinal instrumentation with I-Kaushal cage system and 25 mm screws s/p 06/15/[address] Quiroz ( vascular approach) 1. Anterior retroperitoneal exposure, interbody fusion lumbosacral spine, L5-S1. 2. Mobilization of the right proximal common iliac artery and vein. 3. Mobilization of the left common iliac artery and vein. 4. Ligation of the middle sacral artery. Hospital Course status post surgery course of recovery uneventful initially IV fluids s/p perioperative antibiotics neurovascular status closely monitored, remained stable venous Duplex BLE was done due to pain in legs and was negative for acute DVT DVT prophylaxis provided incision remained clean , dry and intact pain management was addressed pain was controlled remained hemodynamically stable ambulated with PT fall precautions maintained; safe for ambulation use of incentive spirometry was encouraged while in the bed tolerated diet , IV fluids discontinued patient started on empiric antibiotic for possible UTI, urine culture revealed Lactobacillus, antibiotic stopped GI prophylaxis provided voided freely oral hydration was encouraged antiemetics were on board as needed bowel regimen instituted patient was stable for discharge discharge instructions provided follow up with surgeon inthe office as advised FINAL DIAGNOSES 1. Traumatic spondylopathy, L5-S1, prior L5-S1 posterior spinal instrumented fusion with subsequent asymptomatic arthrosis. 2. Traumatically aggravated L5-S1 pseudoarthrosis. 3. s/p Anterior lumbar interbody fusion L5/S1 with bone morphogenic protein and anterior instrumentation Discharge Condition Upon Discharge: stable Discharge Vital Signs Last Vital Signs Date Time Temp Pulse Resp B/P (MAP) Pulse Ox O2 Delivery O2 Flow Rate FiO2 06/20/19 16:00 97.6 51 20 114/77 (89) 96 06/20/19 09:00 Room Air 06/15/19 10:30 3 Discharge Disposition Patient was discharged home Discharge Instructions Discharge Instructions Special Instructions I have been assigned to complete a D/C Summary on this account. I was not involved in the patient management Sabrina Uribe NP Jun 21, 2019 15:27
== END 2019-06-20 16:09 | disposition home or self-care (01) | DRG 460 ==
LOC: SDSOVERFLO 05:45 → 3E 10:45
DX: M96.0 Pseudarthrosis after fusion or arthrodesis (principal); M51.17 Intervertebral disc disorders with radiculopathy, lumbosacral region; Y83.8 Other surgical procedures as the cause of abnormal reaction of the patient, or of later complication, without mention of misadventure at the time of the procedure; M48.8X7 Other specified spondylopathies, lumbosacral region; I10 Essential (primary) hypertension; V89.2XXS Person injured in unspecified motor-vehicle accident, traffic, sequela
CPT/HCPCS: 36415; 72020; 76000; 80048; 81001; 85025; 86850; 86900; 86901; 86920; 87081; 87086; 93970; 94003; 94150; J2180; J2250; J2405